=== PATIENT | male | born 2000 | race Caucasian/White ===

== ENCOUNTER 2024-04-16 17:34 | Emergency (ER) | payer SELFPAY ==
[2024-04-16 17:39] VITALS: BP 117/71; PULSE 64; RESP 16; TEMP 36.9; O2SAT 99
--- NOTE | 2024-04-16 18:05 | XRR_ITS ---
PROCEDURE INFORMATION: Exam: XR Right Ankle Exam date and time: 04/16/2024 6:21 PM Age: 24 years old Clinical indication: Injury or trauma; Patient HX: RT foot/lateral ankle pain post fall TECHNIQUE: Imaging protocol: Radiologic exam of the right ankle. Views: 3 or more views. COMPARISON: CR (LOW EXM, ) 04/16/2024 6:21 PM FINDINGS: Bones/joints: No acute fracture or subluxation. Soft tissues: Mild soft tissue swelling along the malleolus which can be seen with sprain. XR/XR ankle RT min 3V* [id number] IMPRESSION: No acute fracture, mild soft tissue swelling which can be seen with a sprain.
--- NOTE | 2024-04-16 18:05 | XRR_ITS ---
PROCEDURE INFORMATION: Exam: XR Right Foot Exam date and time: 04/16/2024 6:21 PM Age: 24 years old Clinical indication: Pain; Ankle and foot; Right; Additional info: RT foot/lateral ankle pain post fall. TECHNIQUE: Imaging protocol: Radiologic exam of the right foot. Views: 3 or more views. COMPARISON: CR XR ankle RT min 3V* [id number] 04/16/2024 6:21 PM FINDINGS: Bones/joints: Normal. Soft tissues: Normal. XR/XR foot RT min 3V* [id number] IMPRESSION: No acute findings.
--- NOTE | 2024-04-16 18:08 | ED_ITS ---
Documented by User: [email or web address] White 04/16/24 19:26 HPI - Extremity Problem General: Chief complaint: Extremity Injury, Lower Stated complaint: passed out Right foot pain Time Seen by Provider: 04/16/24 17:45 Source: patient Mode of arrival: ambulatory Limitations: no limitations History of Present Illness: Patient is a 24-year-old male presenting to the emergency department planing of right foot and ankle pain onset this morning. Patient notes he was walking when he jammed his foot into a post, causing to invert which resulted in moderate pain afterwards. He notes he is only been able to walk on his heel since then. He notes that the pain got so bad that it caused him to get nauseous and passed out. Mom states that she heard this and just walked into the bathroom and he was on the ground, but was not unconscious and he was able to get up under his own power. He states the pain is primarily to the lateral foot and ankle, no prior history of surgeries or fractures. He has not taken anything for pain at this point. Pain is reproducible by weightbearing and palpation, alleviated by rest. MD Complaint: extremity pain and joint pain Onset (ago): hour(s) Pain Consistency: constant Location: right Relieving factors: rest Exacerbating factors: weight bearing and palpation Associated symptoms: Deny chest pain, fever(s) or rash Review of Systems General: Reports: 10 or more systems reviewed and unremarkable except in HPI and below Const: Denies: fever(s), chills or fatigue Eyes: Denies: change in vision ENMT: Denies: throat pain, ear or mastoid pain or nasal discharge Card: Denies: chest pain, palpitations, swelling of feet/ankles or lightheadedness Resp: Denies: dyspnea, productive cough or wheezing GI: Denies: abdominal pain, nausea, vomiting, diarrhea or constipation : Denies: flank pain, difficulty urinating, dysuria or urinary frequency Musc: Reports: extremity pain and joint pain; Denies: neck pain or back pain Skin/Breast: Denies: rash Neuro: Denies: headache(s), numbness in extremities or weakness in extremities Physical Exam Const: COMMON NORMALS: no acute distress, average body habitus, patient oriented x3, no limitations, healthy appearing, alert and well nourished GENERAL APPEARANCE: cooperative and comfortable ORIENTATION/CONSCIOUSNESS: Yes awake HENMT: COMMON NORMALS: normocephalic and atraumatic HEAD & SCALP: normocephalic and atraumatic Eye: COMMON NORMALS: EOMs intact bilaterally and conjunctivae normal CONJUNCTIVA: Yes conjunctivae normal Neck/C-Spine: COMMON NORMALS: full ROM and supple Resp: COMMON NORMALS: normal respiratory effort, No retractions, No use of accessory muscles and clear to auscultation bilaterally AUSCULTATION: clear to auscultation bilaterally Cardio: COMMON NORMALS: regular rate, regular rhythm, S1 normal heart sound present, S2 normal heart sound present and Peripheral pulses 2+ throughout RATE: regular rate RHYTHM: regular rhythm HEART SOUNDS: S1 normal heart sound present and S2 normal heart sound present PERIPHERAL PULSES: Peripheral pulses 2+ throughout Extremity: COMMON NORMALS: normal to inspection and full ROM NARRATIVE EXTREMITY EXAM: Very mild reproducible tenderness to palpation about the right lateral foot and ankle. No bruising or signs of trauma. No distal neurovascular deficit. Neuro: COMMON NORMALS: patient oriented x3, moves all extremities, no focal motor deficits and no sensory deficits noted SENSORIUM/ORIENTATION: Yes alert Skin: COMMON NORMALS: no rashes or lesions noted GENERAL SKIN EXAM: no rashes or lesions noted Course Vital Signs: Vital signs: Vital Signs Temperature 98.4 F 04/16/24 17:39 Pulse Rate 64 04/16/24 17:39 Respiratory Rate 16 04/16/24 17:39 Blood Pressure 117/71 04/16/24 17:39 Pulse Oximetry 99 04/16/24 17:39 Oxygen Delivery Me thod Room Air 04/16/24 17:39 MDM - Extremity (Nontraumatic) Medical Decision Making Patient presenting for right foot and ankle pain status post injury earlier today. X-ray did not demonstrate any acute fractures though had some findings consistent with a sprain. Informed patient that there is no fracture and that he can treat with RICE therapy as well as taking Tylenol and ibuprofen for pain. He has to follow-up with primary care as needed and return with any new or worsening. Lab Data Radiology Impressions Ankle X-Ray 04/16/24 18:05 IMPRESSION: No acute fracture, mild soft tissue swelling which can be seen with a sprain. Foot X-Ray 04/16/24 18:05 IMPRESSION: No acute findings. All radiology interpretation(s) finalized by discharge Discharge Plan Discharge Patient Disposition: Home Clinical Impression: Right ankle sprain Condition: Stable Discharge Orders: Discharge ED (Routine); Ordered 04/16/24 Ordered By: Cesar Robles Referrals: Mary Kate Elizalde DO [Primary Care Provider] - Discharge Diet: Usual diet Discharge Activity: Increase activity as tolerated Patient Instructions: Ankle Sprain (ED) Activity Restrictions/Additional Instructions: Rest, ice, compression, and elevation. Tylenol or ibuprofen for pain. Gentle range of motion exercises as tolerated. Follow-up with your primary care provider. Return with any new or worsening. Coding Level of Care Code ED Shirt Closer for Chg Fwd Documented by User: Tien Addison DO 04/25/24 06:58 HPI - Extremity Problem General: Chief complaint: Extremity Injury, Lower Stated complaint: passed out Right foot pain Time Seen by Provider: 04/16/24 17:45 Course Vital Signs: Vital signs: Vital Signs Temperature 98.4 F 04/16/24 17:39 Pulse Rate 64 04/16/24 17:39 Respiratory Rate 16 04/16/24 17:39 Blood Pressure 117/71 04/16/24 17:39 Pulse Oximetry 99 04/16/24 17:39 Oxygen Delivery Me thod Room Air 04/16/24 17:39 MDM - Extremity (Nontraumatic) Medical Decision Making Patient presenting for right foot and ankle pain status post injury earlier today. X-ray did not demonstrate any acute fractures though had some findings consistent with a sprain. Informed patient that there is no fracture and that he can treat with RICE therapy as well as taking Tylenol and ibuprofen for pain. He has to follow-up with primary care as needed and return with any new or worsening. Chart reviewed Lab Data Radiology Impressions Ankle X-Ray 04/16/24 18:05 IMPRESSION: No acute fracture, mild soft tissue swelling which can be seen with a sprain. Foot X-Ray 04/16/24 18:05 IMPRESSION: No acute findings. Discharge Plan Discharge Patient Disposition: Home Clinical Impression: Right ankle sprain Condition: Stable Discharge Orders: Discharge ED (Routine); Ordered 04/16/24 Ordered By: Cesar Robles Referrals: Mary Kate Elizalde DO [Primary Care Provider] - Discharge Diet: Usual diet Discharge Activity: Increase activity as tolerated Patient Instructions: Ankle Sprain (ED) Activity Restrictions/Additional Instructions: Rest, ice, compression, and elevation. Tylenol or ibuprofen for pain. Gentle range of motion exercises as tolerated. Follow-up with your primary care provider. Return with any new or worsening. Coding Level of Care Code ED Shirt Closer for Hailey Abarca
== END 2024-04-16 19:22 | disposition home or self-care (01) ==
PROVIDERS: Emergency Provider Physician Assistant; PCP Family Medicine
DX: S93.401A Sprain of unspecified ligament of right ankle, initial encounter (principal); W22.09XA Striking against other stationary object, initial encounter
CPT/HCPCS: 73610; 73630; 99283